=== PATIENT | female | born 1975 | race Caucasian/White ===

== ENCOUNTER 2017-04-12 22:01 | Emergency (ER) | payer OTHER ==
--- NOTE | 2017-04-12 22:18 | ED Physician Documentation ---
PD HPI LOWER EXT INJURY - Stated complaint Stated Complaint: LEFT ANKLE INJURY - Chief complaint Chief Complaint: Ext Problem - History obtained from History obtained from: Patient - History of Present Illness PD HPI LOW EXT INJURY LOCATION: Other (42-year-old woman, active duty in the [place]. She fell down a few steps last night and injured her left ankle. No other injuries. She has persistent pain at the anterior lateral part of the left ankle but she is able to walk and bear weight.) Review of Systems Constitutional: reports: Reviewed and negative Cardiac: reports: Reviewed and negative Respiratory: reports: Reviewed and negative PD PAST MEDICAL HISTORY - Present Medications Home Medications: Ambulatory Orders Medication Instructions Recorded Confirmed No Known Home Medications [No 04/12/17 04/12/17 Known Home Medications] - Allergies Allergies/Adverse Reactions: Allergies Allergy/AdvReac Type Severity Reaction Status Date / Time No Known Drug Allergies Allergy Verified 04/12/17 22:10 PD ED PE NORMAL - Vitals Vital signs reviewed: Yes - General General: Alert and oriented X 3, No acute distress - Extremities Extremities: Other (Mild tenderness and swelling to the anterior ankle joint and ATFL without malleolar tenderness or proximal fibular tenderness. No foot tenderness. Normal Achilles function.) - Neuro Neuro: Alert and oriented X 3, Normal speech - Psych Psych: Normal mood, Normal affect Results - Vitals Vitals: Vital Signs - 24 hr 04/12/17 04/12/17 22:06 22:42 Temperature 36.5 C 36.7 C Heart Rate 63 76 Respiratory 16 18 Rate Blood Pressure 130/83 H 112/87 H O2 Saturation 96 98 Oxygen O2 Source Room air - Rads (name of study) 3v L ankle Radiology: EMP read contemporaneously (STS no frx) Departure - Departure Disposition: 01 Home, Self Care Clinical Impression: Left ankle sprain Qualifiers: Encounter type: initial encounter Involved ligament of ankle: anterior talofibular ligament Qualified Code(s): S93.492A - Sprain of other ligament of left ankle, initial encounter Condition: Good Record reviewed to determine appropriate education?: Yes Instructions: ED Sprain Ankle W X Ray Comments: Recheck with your doctor in 1 week if not better, ibuprofen as needed for pain. Your blood pressure was elevated today on check into the emergency department. This does not mean that you have hypertension, it is a common phenomenon to come to the emergency department and have elevated blood pressure. I recommend that you see your primary care physician within the week to have it rechecked when you are feeling better. Forms: Activity restrictions Discharge Date/Time: 04/12/17 22:46
[2017-04-12 22:46] VITALS: BP 112/87
--- NOTE | 2017-04-12 23:06 | XRAY Preliminary Report ---
Exam: XR ANKLE 3 VIEW LT IMPRESSION: Mild lateral and anterior ankle soft tissue swelling. No evidence for acute fracture. [facility] SITE ID: [id number]
--- NOTE | 2017-04-12 23:06 | XRAY Report ---
EXAM: LEFT ANKLE RADIOGRAPHY EXAM DATE: 04/12/2017 10:27 PM. CLINICAL HISTORY: Ankle injury. Twisted ankle yesterday. Lateral and anterior ankle pain. Difficulty bearing weight. COMPARISON: None. TECHNIQUE: 3 views. FINDINGS: Bones: Normal. No fractures or bone lesions. Joints: Normal. No effusion. No subluxations. The ankle mortise is normally aligned. Soft Tissues: Mild lateral and anterior ankle soft tissue swelling. No evidence for acute fracture. IMPRESSION: Mild lateral and anterior ankle soft tissue swelling. No evidence for acute fracture. [facility] Referring Provider Line: [phone] SITE ID: [id number]
== END 2017-04-12 22:46 | disposition home or self-care (01) ==
LOC: ED 22:01
DX: S93.492A Sprain of other ligament of left ankle, initial encounter (principal); W10.9XXA Fall (on) (from) unspecified stairs and steps, initial encounter; Y93.01 Activity, walking, marching and hiking; R03.0 Elevated blood-pressure reading, without diagnosis of hypertension
CPT/HCPCS: 99283